=== PATIENT | female | born 1980 | race African-American/Black ===

== ENCOUNTER → 2017-05-08 | Outpatient (CLI) | payer MEDICAID, MEDICARE ==
[2017-05-08 14:34] LABS: ABSOLUTE EOSINOPHILS # (AUTO) 0.1 10^3/uL (0.0-0.6); ABSOLUTE LYMPHOCYTES (AUTO) 1.8 10^3/uL (0.5-4.7); ABSOLUTE MONOCYTES (AUTO) 0.4 10^3/uL (0.1-1.4); ABSOLUTE NEUT (AUTO) 2.8 10^3/uL (1.7-8.2); EOSINOPHILS % (AUTO) 2.4 % (0-6); HEMATOCRIT 37.7 % (36.0-47.0); HEMOGLOBIN 12.7 g/dL (12.0-15.5); MEAN CORPUSCULAR HEMOGLOBIN 28.6 pg (27.0-33.4); MEAN CORPUSCULAR HGB CONC 33.8 g/dL (32.0-36.0); MEAN CORPUSCULAR VOLUME 85 fl (80-97); MONOCYTES % (AUTO) 6.9 % (3-13); PLATELET COUNT 232 10^3/uL (150-450); RED BLOOD COUNT 4.46 10^6/uL (3.72-5.28); RED CELL DISTRIBUTION WIDTH 14.3 % (11.5-14.0); SEGMENTED NEUTROPHILS % (AUTO) 53.7 % (42-78); TOTAL CELLS COUNTED % (AUTO) 100 %; WHITE BLOOD COUNT 5.1 10^3/uL (4.0-10.5)
[2017-05-08 15:03] LABS: ALANINE AMINOTRANSFERASE 19 U/L (9-52); ALBUMIN 4.2 g/dL (3.5-5.0); ALKALINE PHOSPHATASE 50 U/L (38-126); ANION GAP 8 (5-19); ASPARTATE AMINO TRANSFERASE 17 U/L (14-36); BILIRUBIN,DIRECT 0.3 mg/dL (0.0-0.4); BILIRUBIN,TOTAL 0.6 mg/dL (0.2-1.3); BLOOD UREA NITROGEN 13 mg/dL (7-20); CALCIUM 9.5 mg/dL (8.4-10.2); CARBON DIOXIDE 27 mmol/L (22-30); CHLORIDE 107 mmol/L (98-107); GAMMA-GLUTAMYL TRANSFERASE 10 U/L (8-78); GLUCOSE 63 mg/dL (75-110); TOTAL PROTEIN 6.9 g/dL (6.3-8.2)
[2017-05-08 15:14] LABS: FREE T4 (FREE THYROXINE) 1.02 ng/dL (0.78-2.19)
[2017-05-09 07:30] LABS: TRIIODOTHYRONINE (T3) 82 ng/dL (71-180)
== END ==
LOC: LAB 14:14
DX: F25.0 Schizoaffective disorder, bipolar type (principal); F41.9 Anxiety disorder, unspecified
CPT/HCPCS: 36415; 80053; 82306; 82977; 83036; 84439; 84443; 84480; 85025

== ENCOUNTER 2017-06-08 11:19 | Emergency (ER) | payer MEDICARE ==
--- NOTE | 2017-06-08 12:45 | ER Document Report ---
ED General - General Mode of Arrival: Ambulatory Information source: Patient TRAVEL OUTSIDE OF THE [place] IN LAST 30 DAYS: No - General Chief Complaint: Headache Stated Complaint: HEADACHE Time Seen by Provider: 06/08/17 12:23 Notes: Patient is a 36-year-old female who presents to the emergency department today with complaints of a headache. Patient states she was also told that her TSH was elevated recently with labs that her psychiatrist ordered, stating her TSH was 16. Patient states she has been taking her Synthroid as prescribed and has even upped the dosage to 1 1/2 pills daily after finding out this TSH level. Patient states the prescription she currently has runs out in 2 days and it is 125 mcg. Patient denies fevers. Patient states she has not missed any dosages of her medication. (CLARA ELISE) - Related Data Allergies/Adverse Reactions: No Known Allergies Allergy (Verified 06/08/17 12:26) Past Medical History - General Information source: Patient - Social History Smoking Status: Current Every Day Smoker Cigarette use (# per day): No Chew tobacco use (# tins/day): No Frequency of alcohol use: Rare Drug Abuse: Marijuana Lives with: Family Family History: Reviewed & Not Pertinent Patient has suicidal ideation: No Patient has homicidal ideation: No Renal/ Medical History: Denies: Hx Peritoneal Dialysis Psychiatric Medical History: Reports: Hx Schizophrenia Past Surgical History: Reports: Hx Oral Surgery - wisdom teeth, Hx Thyroid Surgery Review of Systems - Review of Systems Constitutional: See HPI, Other - elevated TSH. denies: Fever EENT: No symptoms reported Cardiovascular: No symptoms reported Respiratory: No symptoms reported Gastrointestinal: No symptoms reported Genitourinary: No symptoms reported Female Genitourinary: No symptoms reported Musculoskeletal: No symptoms reported Skin: No symptoms reported Hematologic/Lymphatic: No symptoms reported Neurological/Psychological: See HPI, Headaches -: Yes All other systems reviewed and negative Physical Exam - Vital signs Vitals: Temp Pulse Resp BP Pulse Ox 98.0 F 82 18 127/79 H 100 06/08/17 11:26 06/08/17 11:26 06/08/17 11:26 06/08/17 11:26 06/08/17 11:26 - Notes Notes: Physical Exam: General: Alert, appears well. HEENT: Normocephalic. Atraumatic. PERRL. Extraocular movements intact. Oropharynx clear. Neck: Supple. Non-tender. Respiratory: No respiratory distress. Clear and equal breath sounds bilaterally. Cardiovascular: Regular rate and rhythm. Abdominal: Normal Inspection. Non-tender. No distension. Normal Bowel Sounds. Back: Non-tender. No deformity or step off. Extremities: Moves all four extremities. Upper extremities: Normal inspection. Normal ROM. Lower extremities: Normal inspection. No edema. Normal ROM. Neurological: Normal cognition. AAOx4. Normal speech. Psychological: Normal affect. Normal Mood. Skin: Warm. Dry. Normal color. (CLARA ELISE) Course - Re-evaluation Re-evalutation: 06/08/17 12:52 Well-appearing patient in no acute distress TSH performed by her psychologist shows value of 16. Patient is currently on 125 mcg a day. Patient currently does not have primary care but is working to establish. Patient only has a few days of Synthroid left. Will titrate his dose to 137 mcg she need to follow-up with primary care physician in the next month for lab redraw. Return precautions provided. In regards to her headache she has been having a migraine similar to previous migraines experience. Will provide naproxen as patient is on mirtazapine and Abilify and there are drug interactions with these drugs to Compazine as well as Fioricet. (CORNELIUS CRUZ) - Vital Signs Vital signs: Temp Pulse Resp BP Pulse Ox 97.9 F 76 16 124/77 99 06/08/17 12:55 06/08/17 12:55 06/08/17 12:55 06/08/17 12:55 06/08/17 12:55 Discharge - Discharge Clinical Impression: Hypothyroid Qualifiers: Hypothyroidism type: unspecified Qualified Code(s): E03.9 - Hypothyroidism, unspecified Migraine Qualifiers: Migraine type: unspecified Status migrainosus presence: without status migrainosus Intractability: not intractable Qualified Code(s): G43.909 - Migraine, unspecified, not intractable, without status migrainosus Condition: Stable Disposition: HOME, SELF-CARE Instructions: Headache ([facility]), Hypothyroidism ([facility]) Additional Instructions: Due to your thyroid levels being low your Synthroid was increased from 125 mcg to 137 mcg once daily. Please follow-up with family physician within the next month for reevaluation and lab redraw. Primary care physician referral was provided today if you need assistance in obtaining one. Please use Naproxen provided today for migraine relief. Prescriptions: Levothyroxine Sodium [Synthroid] 137 mcg PO QAM #30 tablet Naproxen 500 mg PO BID PRN #30 tablet PRN Reason: Referrals: ANNELIESE JOLLY MD [ACTIVE STAFF] - Follow up in 1 week (For re-evaluation) Scribe Attestation: 06/11/17 10:50 I personally performed the services described in the documentation, reviewed and edited the documentation which was dictated to the scribe in my presence, and it accurately records my words and actions. (CORNELIUS CRUZ) Scribe Documentation - Scribe Written by Juhi:: Juhi Foster, 06/08/2017 1539 acting as scribe for :: Esteban
[2017-06-08 13:46] VITALS: BP 124/77
== END 2017-06-08 13:05 | disposition home or self-care (01) ==
LOC: ER 11:19
DX: G43.909 Migraine, unspecified, not intractable, without status migrainosus (principal); E03.9 Hypothyroidism, unspecified; F17.200 Nicotine dependence, unspecified, uncomplicated
CPT/HCPCS: 99283

== ENCOUNTER 2017-08-20 01:14 | Emergency (ER) | payer MEDICARE, MEDICAID ==
[2017-08-20 01:39] VITALS: BP 138/92
--- NOTE | 2017-08-20 06:10 | ER Document Report ---
Doctor's Note Notes: 08/20/17 06:09 Patient was not seen. I have attempted to see this patient multiple times, patient is believed to have eloped from the room.
== END 2017-08-20 06:55 | disposition left against medical advice (07) ==
LOC: ER 01:14
DX: Z53.21 Procedure and treatment not carried out due to patient leaving prior to being seen by health care provider (principal)